=== PATIENT | male | born 1935 | race Caucasian/White ===

== ENCOUNTER 2016-10-03 10:44 | Day surgery (SDC) | payer OTHER, MEDICARE ==
[2016-10-03] MEDS ORDERED: diphenhydrAMINE 25 MG CAP PO ONE (11:02)
[2016-10-03] MEDS ORDERED: NS 1,000 ML IV ONE (11:02)
[2016-10-03] MEDS ORDERED: ceFAZolin 2 GM/DEXTROSE 100 ML IV ONE (11:02)
[2016-10-03] MEDS ORDERED: BACITRACIN IRRIGATION/NS 50,000 UNITS/1,000 ML BTL IRR ONE (11:02)
[2016-10-03] MEDS ORDERED: DIAZEPAM 5 MG TAB PO ONE (11:02)
--- NOTE | 2016-10-03 11:13 | CPEKG ---
Heart Rate: 70 RR Interval: 857 P-R Interval: 172 QRSD Interval: 146 QT Interval: 472 QTC Interval: 510 P [place]: 76 QRS [place]: 232 T [place]: 77 EKG Severity - ABNORMAL ECG - EKG Impression: VENTRICULAR-PACED COMPLEXES Electronically Signed By: Marcial López 03-Oct-2016 18:37:13
[2016-10-03 11:32] LABS: % IMMATURE GRANULYOCYTES 0.3 % (0.0-1.1); ABSOLUTE IMMATURE GRANULOCYTES 0.03 10^3/uL (0.00-0.10); ADD DIFF? NO; ADD MORPH? NO; ADD SCAN? NO; ATYPICAL LYMPHOCYTE FLAG 20 (0-99); FRAGMENT RBC FLAG 0 (0-99); HEMATOCRIT 38.6 % (40.0-51.0); HEMOGLOBIN 12.7 g/dL (13.7-17.5); LEFT SHIFT FLG 0 (0-99); LIPEMIA HEMOLYSIS FLAG 80 (0-99); MEAN CELL HEMOGLOBIN 32.6 pg (27.9-34.1); MEAN CELL HEMOGLOBIN CONCENTR. 32.9 g/dL (32.4-36.7); MEAN CELL VOLUME 99.2 fL (81.5-99.8); PLATELET CLUMPS FLAG 10 (0-99); PLATELET COUNT 235 10^3/uL (150-400); RED BLOOD CELL COUNT 3.89 10^6/uL (4.40-6.38); RED CELL DISTRIBUTION WIDTH 14.8 % (11.5-15.2)
[2016-10-03 11:39] LABS: INR 0.97 (0.83-1.16); PROTIME(PATIENT) 12.8 SEC (12.0-15.0)
[2016-10-03 12:08] LABS: ANION GAP 10 mEq/L (8-16); CALCIUM 8.6 mg/dL (8.5-10.4); CARBON DIOXIDE 26 mEq/l (22-31); CHLORIDE 103 mEq/L (97-110); CREATININE 0.9 mg/dL (0.7-1.3); GLOMERULAR FILTRATION RATE > 60; GLUCOSE 139 mg/dL (70-100); POTASSIUM 4.3 mEq/L (3.5-5.2); SODIUM 139 mEq/L (134-144)
[2016-10-03] MEDS ORDERED: LIDOCAINE 1% 30 ML SDV ONE (12:52)
[2016-10-03] MEDS ORDERED: BUPIVACAINE 0.5% 30 ML SDV ONE (12:53)
[2016-10-03] MEDS ORDERED: LIDO/EPI 1% **for epidural** 30 ML SDV ONE (12:53)
[2016-10-03] MEDS ORDERED: MIDAZOLAM 2 MG/2 ML VIAL ONE ×3 (12:53→14:11)
[2016-10-03] MEDS ORDERED: fentaNYL 100 MCG/2 ML INJ ONE (12:53)
--- NOTE | 2016-10-03 15:02 | CPIP ---
[f rep st] INVASIVE CARDIAC PROCEDURE DATE OF PROCEDURE: 10/03/2016 INDICATIONS: The patient is 81 years old. 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 His device is under [employer] advis ory recall. His current device hit elective replacement indicators yesterday. PROCEDURE: Biventricular implantable cardioverter-defibrillator generator change. TECHNIQUE: Following informed consent, in the fasting state patient was brought to the cardiac cath eterization laboratory. His left chest was prepped and draped in the usual sterile fashion. [place] ine was infiltrated over the previously implanted device. Using the #10 blade, a 4 cm incision was made. The ICD generator was dissected bluntly. The ICD capsule was opened sharply. The device was then delivered from the pocket. The leads were individually freed from the surrounding scar tissue . The device was disconnected from the leads. Each lead was individually interrogated with [employer] capture and sensing. The pocket was irrigated. All bleeders were cauterized, and the new device was brought to the field. Each lead was identified by serial number, and affixed into the header a ccording to veneer taping machine operator guidelines. The device and the redundant portion of all leads were then pl aced back in the pocket. The pocket was then closed in 3 layers of interrupted suture using 2-0 Rubén ryl, 3-0 Vicryl and 3-0 Stratafix for the skin. Steri-Strips and a dry dressing were applied. COMPLICATIONS: None. DEVICE INFORMATION: The new device is a [employer]. Reference #[id number], rial #[id number]. All leads were implanted in 2005. The right atrial lead is a [employer]onic 4076. Right atrial lead serial #[id number]. Right ventricular lead is a [employer]onic 6949 lead 58 cm, [id number]. The coronary sinus lead is a [employer] 1058T, 75 cm lead, serial #[id number]. Sensed P waves were 1.7 mV. In the right atrium the lead impedance was 432 ohms with a capture 0.6 V at 0.5 msec. Sensed R-waves were 12.3 mV with a lead impedance of 497 ohms, and thresholds of 0.6 V at 0.5 msec. Coronary sinus lead sensed R waves 9.7 mV. Lead impedance 473 ohms, with a thresho ld of 2.2 V at 1 msec. Defibrillation threshold testing was not performed. DISPOSITION: The patient be recovered in the CVC. He will be discharged home later today. /[id number]/MODL
== END 2016-10-03 17:00 | disposition home or self-care (01) ==
LOC: FCATH 10:44 → EDSTATUS 13:00 → FCATH 17:00
PROVIDERS: ATTEND Internal Medicine Cardiovascular Disease
DX: T82.191A Other mechanical complication of cardiac pulse generator (battery), initial encounter (principal)
CPT/HCPCS: C1882; J0690; J2250; J3010